=== PATIENT | male | born 1980 ===

== ENCOUNTER 2022-09-12 06:45 | Day surgery (SDC) | payer OTHER | END 2022-09-12 13:05 | disposition home or self-care (01) | LOC: AMB-ENDOS 06:45 | PROVIDERS: ATTEND Colon & Rectal Surgery | DX: D12.2 Benign neoplasm of ascending colon (principal); K62.5 Hemorrhage of anus and rectum; K64.8 Other hemorrhoids; R19.4 Change in bowel habit; Z20.822 Contact with and (suspected) exposure to COVID-19 ==